=== PATIENT | female | born 1995 | race Two or more races ===

== ENCOUNTER 2024-10-23 09:44 | Outpatient (CLI) | payer BC, SELFPAY | END 2024-10-23 09:45 | disposition home or self-care (01) | LOC: NFLDREF 09:47 | PROVIDERS: Visit Provider Obstetrics & Gynecology | DX: Z34.92 Encounter for supervision of normal pregnancy, unspecified, second trimester (principal); Z3A.26 26 weeks gestation of pregnancy | CPT/HCPCS: 83020; 83021; 85660; 86787 ==

== ENCOUNTER 2024-10-23 11:42 | Outpatient (CLI) | payer BC, SELFPAY | END 2024-10-23 11:43 | disposition home or self-care (01) | LOC: US 11:42 | PROVIDERS: Visit Provider Obstetrics & Gynecology | DX: O36.8120 Decreased fetal movements, second trimester, not applicable or unspecified (principal); Z3A.27 27 weeks gestation of pregnancy | CPT/HCPCS: 76815 ==

== ENCOUNTER 2024-11-01 08:14 | Outpatient (CLI) | payer BC, SELFPAY | END 2024-11-01 08:15 | disposition home or self-care (01) | LOC: NFLDREF 11-05 01:16 | PROVIDERS: Visit Provider Obstetrics & Gynecology | DX: Z34.02 Encounter for supervision of normal first pregnancy, second trimester (principal) | CPT/HCPCS: 82951; 82952 ==

== ENCOUNTER 2024-12-20 11:57 | Outpatient (CLI) | payer MEDICAID, SELFPAY | END 2024-12-20 11:58 | disposition home or self-care (01) | LOC: NFLDREF 12-25 23:44 | PROVIDERS: Visit Provider Obstetrics & Gynecology | DX: D64.9 Anemia, unspecified (principal) | CPT/HCPCS: 82728 ==

== ENCOUNTER 2024-12-25 11:17 | Outpatient (CLI) | payer MEDICAID, SELFPAY ==
--- NOTE | 2024-12-25 11:30 | CRLHL7_ITS ---
For Patients: As a result of the Century Cures Act, medical imaging exams and procedure reports are released immediately into your electronic medical record. You may view this report before your referring provider. If you have questions, please contact your health care provider. OB ULTRASOUND PEMA by LMP: 01/23/2025. GA: 35 w, 6 d. INDICATION: Growth. TECHNIQUE: Real time norris scale imaging of the fetus was performed. Transabdominal imaging performed. CERVIX: Not visualized. POSITIONING: Vertex. 7 SDP (N: greater than 2 x 1 cm). PLACENTA: Technique: Transabdominal. PLACENTA POSITION: Posterior. DOPPLER: heart rate: 134 bpm. BIOMETRY: BPD: 8.7 cm. 35 w, 1 d, 37 percent. HC: 31.6 cm. 35 w, 3 d, 13 percent. AC: 32.2 cm. 36 w, 1 d, 68 percent. FL: 7 cm. 35 w, 6 d, 44 percent. FL/AC ratio: 21.67 percent. HC/AC ratio: .98. EFW: 2788 g. Weight: 6 lbs, 2 oz. age by this US: 35 w, 5 d. PEMA by this US: 01/24/2025. Percentile by PEMA: 51 percent. IMPRESSION: 1. Sonographic gestational age 35 weeks 5 days and sonographic due date 01/24/2025. Good correlation with dates. Normal interval growth. 2. Estimated weight 51st percentile. Abdominal circumference 68th percentile. Rafael Palomino M.D. Diagnostic Radiologist [email or web address] HUGH/Dictated by: Rafael Palomino MD @ 12/25/2024 8:12:00 PM (Electronically Signed)
== END 2024-12-25 11:18 | disposition home or self-care (01) ==
LOC: US 11:18
PROVIDERS: Visit Provider Obstetrics & Gynecology
DX: Z34.93 Encounter for supervision of normal pregnancy, unspecified, third trimester (principal); Z3A.35 35 weeks gestation of pregnancy
CPT/HCPCS: 76816; 87081; 87653

== ENCOUNTER 2024-12-25 13:41 | Outpatient (CLI) | payer MEDICAID, SELFPAY ==
[2024-12-26 15:10] LABS: Strep B DNA Probe POSITIVE (Negative)
[2024-12-26 16:52] LABS: Strep B Susceptibility Needed? No
== END 2024-12-25 13:42 | disposition home or self-care (01) ==
LOC: NFLDREF 13:41
PROVIDERS: Visit Provider Registered Nurse
DX: Z34.93 Encounter for supervision of normal pregnancy, unspecified, third trimester (principal); Z3A.35 35 weeks gestation of pregnancy
CPT/HCPCS: 87081; 87653

== ENCOUNTER 2025-01-08 11:32 | Inpatient (IN) | payer MEDICAID, SELFPAY ==
[2025-01-08] VITALS (70 sets, daily range): BP systolic 94–143; BP diastolic 50–79; PULSE 97–171; TEMP 36.5–37.1; O2SAT 80–100; BMI 31.8
--- NOTE | 2025-01-08 11:51 | W.PM.LDBA ---
Subjective History of Present Illness Date Seen: 01/08/25 Narrative: Patient is being admitted to Labor and Delivery for IOL after PROM. She is a 29 year old at 37 6/7 weeks gestation. Her full history and physical was dictated by Dr. GRIFFIN on 01/08/25. Please see this for details. Patient concerned about watery like vaginal discharge since last Tuesday, she was uncertain if this would be amniotic fluid and decided to wait to her clinic appointment today. AmniSure positive in clinic. Recommendation given for admission. Specific Issues/Plans Transfer at 26 6/7 weeks' gestation from [place] [id number] Partner: Jerald Latisha&Zenaida griffin 01/08/25 Latvian Speaking # GBS POSITIVE Ok with antibiotics in labor #GERD Change Pepcid to Omeprazole # Failed 1 hour gct (140) Passed all 3 hour gct values #Growth US ordered for 36 weeks due to persistent maternal concerns for size and delivery 12/25/2024: EFW 74% labs 06/02/2024: Blood type: A positive, antibody screen negative Hemoglobin: 12.4 Platelets: 263,000 Rubella: Immune Varicella: Not available RPR: Nonreactive Hep B sAg: Nonreactive Hep B sAb: Immune Hep C Ab: Nonreactive HIV: Negative HbA1c: 5.6 Urine culture: Negative GC/Chlamydia: Negative Genetic testing: Low risk, male AFP: negative Imaginst trimester: 06/02/2024: Single living intrauterine , crown to rump length consistent with at 5 weeks 6 days, PEMA: 01/27/2025 Anatomy scan: 09/10/2024: Vertex, normal amount of amniotic fluid, posterior placenta, not previa. Cervical length: 3.4 cm. Anatomic survey within normal limits. EFW: 371 g. FU 10/23/24: Growth ultrasound was completed today as well: Vertex, single deepest pocket of amniotic fluid 6.39 cm, posterior placenta, EFW: 74 percentile, abdominal circumference: 88 percentile. Normal growth. Vaccinations: COVID: [] Flu: Declined Tdap: 11/07/2024 32 week mental health: 11/19/24 34 wk hgb: Last pap: 2023 normal per patient OB - Problem Based A/P Additional Plan (1) PROM (premature rupture of membranes): Status: Acute Plan 1. IOL after PROM suspected since 01/04/25. Recommend to start IV Oxytocin as cervix is favorable. 2. GBS positive, start antibiotics per protocol RANI- no maternal allergies. 3. Candidate for pain management as desired. OB Exam Detailed Labor and Delivery Exam Patient Gravid: Yes Dilation (cm): 1 Effacement (%): 90 Cervix position: mid Consistency: soft Fetus (Single) Station: -1 Amniotic Membrane Status: SROM Amniotic Membrane Fluid Description: Clear Heart Rate Baseline: 140 Monitor Accelerations: Present Monitor Decelerations: None Community Relations Advisor Variability: Moderate (6-25)
[2025-01-08 12:04] LABS: Basophils Percent Auto 0.5 % (0.0-3.0); Eosinophils Percent Auto 3.2 % (0.0-7.0); Hematocrit 30.8 % (33.0-51.0); Hemoglobin* 10.1 gm/dL (12.0-16.0); Immature Granulocytes Pct Auto 1.2 %; Lymphocytes Percent Auto 13.1 % (20-44); Mean Corpuscular HGB Conc 33 gm/dL (32-36); Mean Corpuscular Hemoglobin 27 pg (26-34); Mean Corpuscular Volume 84 fL (80-100); Monocytes Percent Auto 7.5 % (0.0-11.0); Neutrophils Percent Auto 74.5 % (42.0-72.0); Platelet Count* 208 K/uL (140-440); RDW Coefficient of Variation % 13.8 % (11.5-15.5); Red Blood Count 3.69 m/uL (4.00-5.20); White Blood Count* 12.28 K/uL (4.50-11.00)
[2025-01-08 12:10] LABS: Slide Review Reflex No
[2025-01-08] MEDS: LACTATED RINGERS 1000 ML 1,000 ML 125 ML IV (12:13)
[2025-01-08] MEDS: AMPICILLIN 2 GM in 0.9 % SODIUM CHLORIDE Mini-bag 100 ML IVPB (12:13)
[2025-01-08] MEDS: OXYTOCIN 30 unit/500 ML in NS 30 UNIT/500 ML BAG IVPB (12:18)
[2025-01-08] MEDS: AMPICILLIN 1 GM in 0.9 % SODIUM CHLORIDE Mini-bag 100 ML IVPB ×2 (16:11→20:16)
--- NOTE | 2025-01-08 19:20 | PM.OBPNL ---
Subjective Time Seen by Provider: 16:30 Date Seen: 01/08/25 Narrative: Okay Objective Vital Signs: Last Vital Signs Temp 97.7 F 01/08/25 18:49 Pulse 107 H 01/08/25 18:49 BP 112/68 01/08/25 18:49 Pulse Ox 98 01/08/25 16:09 Pelvic Exam Dilation (cm): 3 Effacement (%): 90 Station: 0 Contractions Monitor mode: External Contraction pattern: Regular Contraction intensity: Mild Pitocin Rate (mU/min): 8 Assessment Assessment: induction ongoing Station: 0 Amniotic Membrane Status: SROM Status: Category l Heart Rate Baseline: 140 Retirement Variability: Moderate (6-25) Monitor Accelerations: Present Monitor Decelerations: None Plan Plan: So far has received 2 doses of ampicillin antibiotic. Forebag noted and recommendation given to open, additional clear fluid noted and tolerated it well. Will continue Oxytocin titration, progressing well.
[2025-01-08] MEDS: ONDANSETRON 2 MG/ML inj 4 MG IV (19:50)
[2025-01-08] MEDS: LACTATED RINGERS 1000 ML 1,000 ML IV (20:21)
[2025-01-08] MEDS: LIDOCAINE 2% (PF) 5 ML VIAL EPIDURAL (20:41)
[2025-01-08] MEDS: ROPIVACAINE 0.2% 100 ml 100 ML 10 MG EPIDURAL (20:44)
--- NOTE | 2025-01-08 20:56 | PM.ANBPRC ---
[facility] Medical History Migraines ?G43.909 - Migraine, unspecified, not intractable, without status migrainosus (ICD-10) Social History Narrative: No cats at home, no personal or family history of preeclampsia, no history of sexual assault or abuse. Patient is , no current or pre smoking, no current or pre alcohol use. Patient works in [employer]. Patient accepts blood transfusions. Denies any yarsani or cultural needs. No chemical or radiation exposure. What is your current living situation?: I presently have a place to live Problems where you live: no known problems In the past 12 months, utilities in danger of being shut off: no In past 12 months, lack of transportation kept you from medical appts, meetings, work, or getting things needed for daily living: no In the past 12 mos, have been you worried that your food would run out before you had money to buy more?: never true In the past 12 mos, the food you bought just didn't last and you didn't have money to buy more?: never true Smoking Status: Never smoker How often does anyone, including family, friends and others, physically hurt you: never How often does anyone, including family, friends and others, insult or talk down to you: never How often does anyone, including family, friends and others, threaten you with harm: never How often does anyone, including family, friends and others, scream or curse at you: never Meds Home Medications and Allergies Home Medications ?Medication ?Instructions ?Recorded ?Confirmed ?Type docosahexaenoic acid 200 mg mg PO 10/23/24 01/08/25 History capsule ( DHA) esomeprazole magnesium 20 mg 20 mg PO QDAY 12/20/24 01/08/25 History capsule,delayed release (Nexium) Allergies Allergy/AdvReac Type Severity Reaction Status Date / Time No Known Drug Allergies Allergy Verified 01/08/25 10:52 Results Labs Labs: Laboratory Results - last 24 hr 01/08/25 11:50 WBC 12.28 H RBC 3.69 L Hgb 10.1 L Hct 30.8 L MCV 84 MCH 27 MCHC 33 RDW Coeff of Shiv 13.8 Plt Count 208 Neut % (Auto) 74.5 H Lymph % (Auto) 13.1 L Rutherford % (Auto) 7.5 Eos % (Auto) 3.2 Baso % (Auto) 0.5 Neut # (Auto) 9.10 H Lymph # (Auto) 1.60 [place]utherford # (Auto) 0.90 Eos # (Auto) 0.40 Baso # (Auto) 0.10 Abs Immat Gran (auto) 0.10 Imm/Tot Granulo (auto) 1.2 Blood Type A Positive Antibody Screen NEGATIVE Vital Signs Vital Signs: Last Vital Signs Temp 98.4 F 01/08/25 19:20 Pulse 111 H 01/08/25 20:54 BP 107/56 L 01/08/25 20:54 Pulse Ox 100 01/08/25 20:52 Weight: 79.061 kg Height: 157.48 cm Anesthesia Procedures Epidural Insertion Patient Location: OB Start Time: 20:35 Stop Time: 21:00 Start Date: 01/08/25 Stop Date: 01/08/25 Reason for Block: primary anesthetic Patient Position: sitting Performed By: Cristian Duffy Preanesthetic Checklist: IV checked, risks and benefits discussed, surgical consent, monitors and equipment checked, pre-op evaluation, timeout performed and anesthesia consent Prep: chlorhexidine gluconate Monitoring: blood pressure monitoring, air sampling and monitoring, continuous pulse oximetry and heart rate Approach: midline Vertebral Space: lumbar (1-5) Needle Type: Tuohy needle Injection Technique: continuous catheter (catheter) Needle gauge: 17 Needle Length (cm): 10 cm Needle Insertion Depth (cm): 5 Catheter Gauge: 19 Catheter Type: multi-orifice Catheter at skin depth (cm): 10 Test Dose Result: negative and lidocaine 1.5% with epinephrine 1 to 200,000
[2025-01-09] VITALS (175 sets, daily range): BP systolic 95–146; BP diastolic 47–82; PULSE 92–134; RESP 16–18; TEMP 36.7–38.3; O2SAT 88–100
[2025-01-09] MEDS: AMPICILLIN 1 GM in 0.9 % SODIUM CHLORIDE Mini-bag 100 ML IVPB ×4 (00:28→12:30)
[2025-01-09] MEDS: LACTATED RINGERS 1000 ML 1,000 ML 125 ML IV (02:22)
[2025-01-09] MEDS: LIDOCAINE 2% (PF) 5 ML VIAL EPIDURAL (03:05)
[2025-01-09] MEDS: ROPIVACAINE 0.2% 100 ml 100 ML 12 MG EPIDURAL (05:08)
--- NOTE | 2025-01-09 07:25 | PM.OBPNL ---
Subjective Time Seen by Provider: 07:28 Date Seen: 01/09/25 Narrative: Shannen is a 29yo admitted at 38w0d GA for PROM. She presented to clinic yesterday, where she noted leaking intermittently that looked clear vs discharge like since 01/04. Amnisure was found to be positive. IOL was started with IV pitocin. Patient has made slow progress through labor. She was deemed to be in active labor at about 0230, with a cervical exam of 6 cm. Next exam by nurse is at about 430 was 7.5cm. In the next few hours, she reported intermittent rectal pressure and persistent abdominal pain. Epidural is in place, which was modified by Anesthesia an attempt to improve pain control. Maternal tachycardia has been present throughout her labor course, but beginning around 0630 tachycardia was noted. Moderate variability with accelerations persisted, no decelerations. When I came on to shift at 0700, requested a cervical exam and patient was also requesting one due to pressure. I presented to the bedside, where patient notes she is very uncomfortable despite epidural. She notes that she does not feel feverish or ill, but she does feel more plasterer maintenance the last few hours. Bedside nurse has noted that her body temp palpates to be increasing, last oral temp was 99.3 and axillary was 100.3 degrees F. Objective Exam: General: Alert and oriented. In distress secondary to pain. Psych: Appropriate mood and affect Abdomen: Gravid. NST: Baseline is about 155 beats per minute, moderate variability, accelerations seen, no decelerations. Previous segment of tracing was notable for a baseline of 160 beats per minute, brief periods of minimal variability noted. [place]: [place] about every 3 minutes. Cervix: Unchanged at 7.5cm/90%/0 Vital Signs: Last Vital Signs Temp 98.7 F 01/09/25 06:06 Pulse 114 H 01/09/25 06:58 BP 119/68 01/09/25 06:58 Pulse Ox 100 01/09/25 07:24 Pelvic Exam Dilation (cm): 3 Effacement (%): 90 Station: 0 Contractions Monitor mode: External Contraction pattern: Regular Contraction intensity: Mild Pitocin Rate (mU/min): 8 Assessment Station: 0 Amniotic Membrane Status: SROM Status: Category l Heart Rate Baseline: 140 Monitor Accelerations: Present Monitor Decelerations: None Plan Plan: Shannen is a 29yo at 38w0d GA admitted for IOL in the setting of PROM. She notes intermittent leaking since 01/04, where she had a positive amnisure in clinic on 01/08. IOL was commenced with IV pitocin, where she made gradual change. Entered active phase at 0230 by cervical exam of 6cm dilation. She was noted to make interval change to 7.5cm at 0430, but on my exam this morning she was diagnosed with labor dystocia in the active phase as she remains unchanged at 7.5cm dilation. In addition, patient has had persistent maternal tachycardia through her labor course and new development of tachycardia at 0630. Last maternal temp orally was 99.3, axillary by bedside RN was reportedly 100.3. status is improved to category 1 with baseline of 155bpm, predominantly moderate variability and accelerations present with no decelerations. Close interval tracing was notable again for tachycardia and periods of minimal variability. Shannen is having a very hard time with pain control despite anesthesia attempting to optimize her epidural. In total, I am concerned with her labor progress in the active phase, persistent maternal tachycardia and new development of intermittent tachycardia. At time of conversation, FHR was category 1 where we discussed either cautiously continuing her induction with pitocin titration vs proceeding to C/S. Explained so long as she remains afebrile with reassuring status, we could continue for another hour as she has not technically met criteria for arrest of dilation in the active phase but she does seem to be developing chorioamnionitis. Patient notes feeling like she can't do it and requests at this time. I agree this is very reasonable given her labor dystocia, likely developing chorioamnionitis and difficulty with pain control. Pitocin was discontinued. ball truing machine operator was requested and presented to the bedside. We reviewed the risks, benefits and alternatives to in detail. Discussed increased risk of bleeding and infection in her case, where she has no asthma, hypertension or history of VTE. She is a candidate for any uterotonic necessary, discussed potential surgical interventions with PPH as well. She does consent to blood transfusion if required. Active T/S on file. Plan perioperative ancef and azithromycin. Blood type B positive. Pediatrics to attend delivery in the setting of an scheduled . Initial conversation was held with Concepcion and her (who declined iPad screen machine operator as he speaks Italian well and could translate) but all of the specific medical decision making and consent for surgery was obtained within in-person ball truing machine operator (Chary).
[2025-01-09] MEDS: AZITHROMYCIN 500 MG in 0.9 % SODIUM CHLORIDE 250 ml 250 ML 255 MG IVPB (07:41)
[2025-01-09] MEDS: CEFAZOLIN 1 GM inj 2 GM IVP (08:00)
[2025-01-09] MEDS: TRANEXAMIC ACID 100 MG/ML INJ 1000 MG IV (08:19)
--- NOTE | 2025-01-09 09:27 | P.ANES_ITS ---
Anesthesia Charges Start Date/Time Anesthesia Start Date: 01/09/25 Anesthesia Start Time: 07:49 Stop Date/Time Anesthesia Stop Date: 01/09/25 Anesthesia Stop Time: 09:13 Summary Emergency: SPRING FLOOR SERVICE WORKER Coding CPT Codes CPT Codes: ANES/ANALG CS DELIVER ADD-ON - 25293 ([id number]) P2 - PATIENT W/MILD SYST DISEASE, QK - CONSULTING SOFTWARE ENGINEER 2-4 CNCRNT ANES PROC, QX - SPRING FLOOR SERVICE WORKER SVC W/ MD MED DIRECTION Additional Codes: Summary - Emergency: SPRING FLOOR SERVICE WORKER ([id number])
--- NOTE | 2025-01-09 09:27 | W.ANESCHARGE ---
Anesthesia Charges Start Date/Time Anesthesia Start Date: 01/09/25 Anesthesia Start Time: 07:49 Stop Date/Time Anesthesia Stop Date: 01/09/25 Anesthesia Stop Time: 09:13 Summary Emergency: PIN STICKER Coding CPT Codes CPT Codes: ANES/ANALG CS DELIVER ADD-ON - 66116 ([id number]) P2 - PATIENT W/MILD SYST DISEASE, QK - DIVERSIONAL THERAPIST'S ASSISTANT 2-4 CNCRNT ANES PROC, QX - PIN STICKER SVC W/ MD MED DIRECTION Additional Codes: Summary - Emergency: PIN STICKER ([id number])
--- NOTE | 2025-01-09 09:28 | W.PM.NB ---
Nerve Block Nerve Block Time Seen by Provider: 09:05 Date Seen: 01/09/25 Type of block requested by surgeon for post-operative analgesia: TAP Side: bilateral Time out performed: Yes Verification of patient name: Yes Verification of date of : Yes Site marking: site marked Name of person performing procedure: Ivania Saini Continuous monitoring Was continuous monitoring of O2 sat, B/P, cardiac exercise specialist, recorded every 15 minutes?: Yes Procedure Checklist: sterile prep, needles and gloves Ultrasound guided. Images saved: Yes Medications given in 5ml increments after negative aspiration: Marcaine %: 0.25 mL: 20 Needle gauge: 20 and Exparel mL: 10 Needle gauge: 20 Patient tolerated procedure well: Yes Block Charges Block Charge (with Pro Fee): TAP Bilateral Use of Ultrasound Machine for Block: Yes- US Guidance/pain block
--- NOTE | 2025-01-09 09:30 | P.ANES_ITS ---
Anesthesia Charges Start Date/Time Anesthesia Start Date: 01/09/25 Anesthesia Start Time: 07:49 Stop Date/Time Anesthesia Stop Date: 01/09/25 Anesthesia Stop Time: 09:13 Summary Emergency: ZITA Coding CPT Codes CPT Codes: ANES/ANALG CS DELIVER ADD-ON - 21816 ([id number]) QK - FRONTEND ENGINEER 2-4 CNCRNT ANES PROC, QX - ASSURANCE SPECIALIST SVC W/ MD MED DIRECTION, P2 - PATIENT W/MILD SYST DISEASE Additional Codes: Summary - Emergency: ZITA ([id number])
--- NOTE | 2025-01-09 09:30 | W.ANESCHARGE ---
Anesthesia Charges Start Date/Time Anesthesia Start Date: 01/09/25 Anesthesia Start Time: 07:49 Stop Date/Time Anesthesia Stop Date: 01/09/25 Anesthesia Stop Time: 09:13 Summary Emergency: ZITA Coding CPT Codes CPT Codes: ANES/ANALG CS DELIVER ADD-ON - 74679 ([id number]) QK - POT FILLER 2-4 CNCRNT ANES PROC, QX - INSTRUCTOR PAINTING SVC W/ MD MED DIRECTION, P2 - PATIENT W/MILD SYST DISEASE Additional Codes: Summary - Emergency: ZITA ([id number])
--- NOTE | 2025-01-09 10:18 | P.OBPRC_ITS ---
Procedure Time Seen by Provider: 08:45 Date of procedure: 01/09/25 Pre-op diagnosis: Intraamniotic infection, prolonged rupture of membranes, labor dystocia in the active phase, GBS positivity Post-op diagnosis: same ( hemorrhage) Procedure Done: Global Will [facility] bill your pro fee for this procedure?: Yes Blood Loss Measurement Type: QBL (3043) Bakri Used: No IV fluids (mL): 1,500 Urine Output (mL): 400 Urine Output Comment: Clear, yellow Surgeon: Carol Ann Cheek MD Anesthesia Type: Epidural Findings: Liveborn male fetus Normal uterus, bilateral fallopian tubes and ovaries Scattered subcentimeter cystic lesions with stuck on appearance on the posterior lower uterus. Friable, with associated small volume bleeding. Procedure Name: Primary Delivery Posterior uterine lesion biopsy Procedure Description: Patient was taken to the operating room with IV running. She received cefazolin and azithromycin in preoperative prophylaxis. She had previously received an epidural for labor analgesia, bolused by DIRECTOR SYSTEMS. Matthew catheter was previously inserted. She was prepped and draped in the usual sterile fashion. Anesthesia was tested and found to be adequate. A low-transverse skin incision was made with a scalpel and carried through to the underlying layer of fascia with the scalpel. The subcutaneous fat was dissected off the underlying fascia with Bovie and blunt dissection. The fascia was nicked in the midline with a scalpel, and this incision was extended l aterally with scissors. The rectus muscles were in the midline. Peritoneum was identified and entered bluntly. Bovie was used to widen this opening laterally. Miguel O retractor was inserted and tightened down, providing excellent visualization of the lower uterine segment. The bladder reflection was advanced along the lower uterine segment. A bladder flap was created with a combination of sharp and blunt dissection. Low-transverse uterine incision was made with a scalpel. Incision was widened bluntly. The infant's head was grasped through the hysterotomy in OA position and elevated to the hysterotomy. The remainder of the body delivered without incident with the help of fundal pressure. No nuchal cord was noted. Cord was clamped and cut after 30 seconds. was handed off to attending nurses. The placenta was delivered with gentle traction on the cord. The uterus was cleaned of all clots and debris with the dry lap pad. Poor uterine tone was noted, where rapid infusion of IV Pitocin was requested hysterotomy repair was started. The hysterotomy was reapproximated with 0 Vicryl in a running, locked fashion. Ongoing atony was noted, where IM Methergine and IV TXA were requested and administered. Second layer of the same suture was used in imbricating fashion to obtain hemostasis. Bimanual massage was performed. Excellent improvement in uterine tone was noted. The adnexa were examined and noted to be normal in appearance. The cul-de-sac and gutters were cleansed with dampened laparotomy sponge, removing any further clots and debris. The posterior surface of the uterus was inspected, where scattered subcentimeter lesions were noted. These were clear in cystic like with a stuck on appearance to the posterior lower uterus. Lesions were noted to be spontaneously oozing, very friable to any manipulation. A characteristic lesion was gently grasped, elevated and excised from the posterior uterus with electrocautery to be sent for pathologic evaluation. Hemostasis was achieved with a [id number] suture o 2-0 vicryl at this site. A second area was noted to be bleeding and did not respond to electrocautery, where a depsos-ca-rhmhl suture was applied there as well. Scattered electrocautery was utilized as needed. Excellent hemostasis was noted, the uterus was reintroduced to the peritoneal cavity. The hysterotomy was examined and noted to be hemostatic. Bladder flap was serially grasped, elevated and noted to be hemostatic. The Miguel O retractor was removed. The hysterotomy was reexamined and found to be hemostatic. The rectus muscles were examined and made hemostatic with electrocautery as needed. The fascia was reapproximated with 0 Vicryl in a running fashion. Subcutaneous fat was irrigated and Bovie used on oozing vessels. The subcutaneous fat did not require closure. The skin was closed with a subcuticular stitch of 3-0 monocryl. Surgical glue was applied above this. details: - Liveborn male fetus - weight: 3430g - APGARs were 8 and 10 at 1 and 5 minutes respectively - Cord gas and cord blood were not sent Surgical debrief was completed with details as above. Case was complicated by a hemorrhage secondary to uterine atony, treated with 40 units of dilute oxytocin IV, 1 g IV TXA and 0.2mg IM methergine. Initial QBL was 1034cc, however at completion of case another 90cc clot was expressed from the uterus making total QBL 1133cc. I returned to the operating room in order to reassess bleeding - where excellent uterine tone was noted, fundus at umbilicus. The labia were gently parted, where no further expression of blood/clots could be appreciated with fundal pressure. Gentle vaginal exam performed, no apparent residual clots or lower uterine segment atony. Patient tolerated procedure well was taken to recovery area in stable condition. Complications: hemorrhage secondary to uterine atony Pathology: specimen obtained, sent to pathology Surgery Debrief Performed: Yes Condition: stable Disposition: floor Infant total score - 1 minute: 8 total score - 5 minute: 10
[2025-01-09] MEDS: LACTATED RINGERS 1000 ML 1,000 ML 100 ML IV ×2 (11:40→12:25)
[2025-01-09] MEDS: CLINDAMYCIN 900 MG/50 ML-D5W 900 MG/50 ML PIGGYBACK 100 MG IVPB ×2 (13:18→21:03)
[2025-01-09] MEDS: KETOROLAC 30 MG/ML inj IVP ×2 (15:21→21:03)
[2025-01-09 18:14] LABS: Rapid Plasma Reagin (RPR) Non Reactive (Non Reactive)
[2025-01-09] MEDS: AMPICILLIN 2 GM in 0.9 % SODIUM CHLORIDE Mini-bag 100 ML IVPB ×2 (18:22→23:59)
[2025-01-10] VITALS (23 sets, daily range): BP systolic 89–108; BP diastolic 54–68; PULSE 86–97; RESP 16–18; TEMP 36.3–36.9; O2SAT 92–99
[2025-01-10] MEDS: KETOROLAC 30 MG/ML inj IVP ×3 (03:25→15:32)
[2025-01-10] MEDS: CLINDAMYCIN 900 MG/50 ML-D5W 900 MG/50 ML PIGGYBACK 100 MG IVPB (05:10)
[2025-01-10] MEDS: AMPICILLIN 2 GM in 0.9 % SODIUM CHLORIDE Mini-bag 100 ML IVPB ×2 (06:33→12:17)
[2025-01-10 06:35] LABS: Hemoglobin* 7.3 gm/dL (12.0-16.0)
--- NOTE | 2025-01-10 08:38 | PM.OBPNVD1 ---
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 Her labor was complicated by chorioamnionitis and arrest of dilation. She underwent a delivery yesterday morning at approximately 8:15 a.m.. Her blood loss was 1.1 L and her hemoglobin this morning was 7.3. Reports fatigue and mild dizziness when she is out of bed. Consent for transfusion of packed red blood cells was reviewed and signed with the asphalt paver. All the patient's questions were answered. Planning on giving her 1 unit of packed red blood cells and then I will reassess how she is feeling at approximately noon today if she is not feeling significantly better I will give her a 2nd unit. She otherwise states her pain is well controlled. She denies nausea/vomiting. She is tolerating a regular diet. She has not had flatus. Her Matthew catheter was removed this morning at approximately 5:15 am. She has not urinated yet. She is bottle feeding her baby. OB - PN: Obj Exam Physical Exam: Vital signs: Temp Pulse Resp BP Pulse Ox O2 Del Method 98 F 95 16 91/56 L 98 Room Air 01/10/25 05:06 01/10/25 05:06 01/10/25 06:27 01/10/25 06:00 01/10/25 05:06 01/10/25 05:06 Narrative: General: Pleasant, woman in no acute distress. Vital signs: Included in her medical record. Heart: Regular rate and rhythm without gallop, rub or murmur. Chest: Clear to auscultation bilaterally. Abdomen: Mildly distended with mild tenderness to palpation throughout. No rebound or guarding. Normal bowel sounds throughout. No CVA or flank tenderness. Incision: Dressing removed. Incision is clean, dry and intact. Extremities: No pain or edema. OB - PN: Obj Data Labs Labs: Laboratory Results - last 24 hr 01/08/25 01/10/25 11:50 06:13 Hgb 7.3 L* RPR Screen Non Reactive OB - PN: A/P Delivery Assessment and Plan (1) Status post primary low transverse section: Status: Acute Assessment and Plan: 1. Due to symptomatic anemia plan on transfusing 1 unit packed red blood cells. I will see her approximately noon and reassess how she is feeling. If she is not feeling significantly better I will recommend giving her a 2nd unit. 2. Check hemoglobin tomorrow morning. 3. Start oral iron supplementation every other day. 4. Continue postoperative care.
[2025-01-10] MEDS: DOCUSATE SODIUM 100 MG CAPSULE PO (09:07)
--- NOTE | 2025-01-10 09:27 | PM.ANPOST ---
Post Anesthesia Note Post Anesthesia Note Patient seen: Inpatient Respiratory Status: adequate Cardiovascular Status: adequate Mental Status: baseline Pain: adequate Temp: baseline Anesthetic awareness: N/A Complications: none Follow care: none
[2025-01-10] MEDS: FERROUS SULFATE 325 MG TABLET PO (12:04)
[2025-01-10] MEDS: ACETAMINOPHEN 500 MG TABLET 1000 MG PO ×2 (17:10→23:30)
[2025-01-10 17:11] LABS: Hemoglobin* 8.8 gm/dL (12.0-16.0)
[2025-01-10] MEDS: OXYCODONE 5 MG TABLET PO ×2 (19:59→23:30)
[2025-01-10] MEDS: IBUPROFEN 600 MG TABLET PO (19:59)
[2025-01-11 00:10] VITALS: BP 108/74; PULSE 83; RESP 16; TEMP 36.7; O2SAT 94
[2025-01-11] MEDS: IBUPROFEN 600 MG TABLET PO (03:00)
[2025-01-11] MEDS: OXYCODONE 5 MG TABLET PO (03:47)
[2025-01-11 04:00] VITALS: BP 106/72; PULSE 83; RESP 18; TEMP 36.4; O2SAT 99
[2025-01-11 04:54] LABS: Hemoglobin* 8.4 gm/dL (12.0-16.0)
--- NOTE | 2025-01-11 08:13 | P.DS_ITS ---
DS: Providers Provider Date Seen: 01/11/25 Date of admission: 01/08/25 11:32 Primary care physician: Not a Local Provider Admitting Clinician: Yamilet Powell MD Consults: 01/08/25 12:09 Consult to Podiatry Assistant [CONS] Routine Comment: Reason for Consult:: Eligibility And Occupancy Interviewer Needed Attending Physician on discharge: Melvi Gotti CNM Date of Discharge: 01/11/25 DS: Diagnosis Discharge Diagnosis (1) Status post primary low transverse section: Status: Acute (2) Anemia due to acute blood loss: Status: Acute (3) Transfusion of blood during current hospitalisation: Status: Acute (4) Lactating mother: Status: Acute Exam Narrative: Exam Narrative: GENERAL APPEARANCE:? normal affect, alert, no distress MOOD:? appropriate CHEST:? clear to auscultation HEART:? regular rate and rhythm ABDOMEN:? soft, non-tender the uterine fundus is At Umbilicus, Midline and is appropriate for the stage of recovery. EXTREMITIES:? normal and trace edema INCISION: Healing well, no surrounding erythema, abnormal induration or discharge Const: Vital Signs, click to edit/add: Vital Signs - 24 hr 01/10/25 09:54 01/10/25 10:09 01/10/25 10:39 Temperature 98.1 F 98.1 F 98.2 F Pulse Rate 90 92 92 Pulse Rate [Pulse Oximeter] Respiratory Rate 16 16 16 Blood Pressure 89/55 L 89/54 L 94/62 Blood Pressure [Ri ght Arm] Pulse Oximetry 97 92 92 Oxygen Delivery Me thod Room Air Room Air Room Air 01/10/25 11:09 01/10/25 11:39 01/10/25 13:10 Temperature 98.1 F 98.4 F 98.1 F Pulse Rate 92 92 Pulse Rate [Pulse Oximeter] 94 Respiratory Rate 16 16 16 Blood Pressure 90/54 L 95/58 L Blood Pressure [Ri ght Arm] 93/56 L Pulse Oximetry 92 99 99 Oxygen Delivery Me thod Room Air Room Air Room Air 01/10/25 13:11 01/10/25 13:15 01/10/25 13:17 Temperature Pulse Rate Pulse Rate [Pulse Oximeter] 96 97 97 Respiratory Rate Blood Pressure Blood Pressure [Ri ght Arm] 98/60 96/59 L 100/66 Pulse Oximetry Oxygen Delivery Me thod 01/10/25 16:00 01/10/25 20:00 01/11/25 00:10 Temperature 98.0 F 97.4 F L 98.0 F Pulse Rate Pulse Rate [Pulse Oximeter] 97 86 83 Respiratory Rate 16 18 16 Blood Pressure Blood Pressure [Ri ght Arm] 100/62 108/68 108/74 Pulse Oximetry 99 98 94 Oxygen Delivery Me thod Room Air Room Air Room Air 01/11/25 04:00 Temperature 97.5 F L Pulse Rate Pulse Rate [Pulse Oximeter] 83 Respiratory Rate 18 Blood Pressure Blood Pressure [Ri ght Arm] 106/72 Pulse Oximetry 99 Oxygen Delivery Me thod Room Air Documenting provider has reviewed patient's vital signs: yes OB - DS: Summary Hospital Course Hospital Course: Shannen is a 29 y.o. G 1 P 1 who was admitted to [facility] for spontaneous onset of labor. ?She had a section that was uncomplicated. The patient feels well. ?The pain is well controlled with current medications. ?She has no new complaints. ?She is breast feeding and reports things are going well. the patient has done well.? Vitals have been stable.? She has remained afebrile.? Has a good appetite, is tolerating a general diet. ?She is voiding without difficulty.? She is passing gas and has not had a bowel movement.? She is ambulating and denies any dizziness.? Has small amount of rubra lochia. Problems: denies Peripartum Data Infant delivery method: Primary C/S; Labored Procedures: Procedures Operation Date: 01/09/25 06:30 Actual Procedure Side Surgeon p PRIMARY Section Marjorie Cheek MD complications: none Infant Gender: Male Discharge Plan: Home Status at Discharge Functional status at discharge: independent ambulation Overall status at discharge: patient is progressing back to baseline Time Spent with Patient Time attestation: Total time spent providing and/or coordinating discharge services: Time spent: Less than 30 minutes Discharge Plan Discharge Disposition: Home, Self-Care Date of Admission: 01/08/25 11:32 Attending Provider on Discharge: Melvi Gotti Primary Care Provider: Provider,Not a Local Condition: Stable Anticipated Discharge Date/Time: 01/11/25 12:00 Discharge Medications: New docusate sodium 100 mg Capsule 100 mg PO DAILY Qty: 90 0RF ibuprofen 600 mg Tablet 600 mg PO Q6H PRN (Reason: Pain) Qty: 60 0RF oxycodone 5 mg Tablet 5 - 10 mg PO Q4H PRN (Reason: Pain) Qty: 15 0RF ferrous sulfate 325 mg (65 mg iron) tablet,delayed release (DR/EC) 325 mg PO Q OTHER DAY PRN (Reason: Fatigue) Qty: 60 0RF acetaminophen 500 mg Tablet 1,000 mg PO Q6H PRN (Reason: pain/fever) Qty: 0 0RF Continued DHA 200 mg capsule PO esomeprazole magnesium [Nexium] 20 mg capsule,delayed release(DR/EC) 20 mg PO QDAY Discharge Orders: Discharge Order (Routine); Ordered 01/11/25 Ordered By: Melvi Gotti Patient Education: OB Over the Counter Medication Information, O B Vaginal/Breast Feeding Additional Instructions: Discharge instructions were reviewed with the patient including signs and symptoms of infection and home going medications Lifting Restrictions: 20 pounds for 6 weeks No not submerge incision under water X 2 weeks? Nothing vaginally for 6 weeks: no tampons or intercourse Do not drive while taking narcotic pain medication(s) Off Work or School for 6 weeks 2-week visit: incision check, discuss feeding concerns, review control options and screen for anxiety/depression. 6-week visit for an annual exam. consultation services are available to all mothers and babies for the first year after delivery.? To make an appointment, please call [phone]. Activity Level: Activity as Tolerated Discharge Diet: Regular Follow Up Appointments: [facility] [Provider Group] Forms: MyHealth Info Instructions
[2025-01-11 08:38] VITALS: BP 97/63; PULSE 67; RESP 16; TEMP 36.8; O2SAT 97
[2025-01-11] MEDS: ACETAMINOPHEN 500 MG TABLET 1000 MG PO (09:33)
[2025-01-11] MEDS: DOCUSATE SODIUM 100 MG CAPSULE PO (09:33)
[2025-01-11 09:35] VITALS: BP 102/67; PULSE 95; RESP 16; TEMP 36.4; O2SAT 98
[2025-01-11] MEDS: IRON SUCROSE COMPLEX 200 MG in 0.9 % SODIUM CHLORIDE 100 ml 100 ML 440 MG IVPB (09:59)
[2025-01-11 10:21] VITALS: BP 99/63; PULSE 98; RESP 16; O2SAT 98
== END 2025-01-11 12:34 | disposition home or self-care (01) | DRG 540 ==
PROVIDERS: Obstetrics & Gynecology; Admitting Provider Obstetrics & Gynecology; Visit Provider Obstetrics & Gynecology
PROC: 10D00Z1 Extraction of Products of Conception, Low, Open Approach (ICD-10-PCS; CPT 59514; principal; 2025-01-09 06:30)
DX: O42.02 Full-term premature rupture of membranes, onset of labor within 24 hours of rupture (principal); O99.824 Streptococcus B carrier state complicating childbirth; G89.18 Other acute postprocedural pain; O99.892 Other specified diseases and conditions complicating childbirth; R00.0 Tachycardia, unspecified; O76 Abnormality in fetal heart rate and rhythm complicating labor and delivery; O66.9 Obstructed labor, unspecified; O41.1230 Chorioamnionitis, third trimester, not applicable or unspecified; O72.1 Other immediate postpartum hemorrhage; R42 Dizziness and giddiness; R53.83 Other fatigue; O90.81 Anemia of the puerperium; D62 Acute posthemorrhagic anemia; N85.9 Noninflammatory disorder of uterus, unspecified; Z3A.37 37 weeks gestation of pregnancy; Z37.0 Single live birth
CPT/HCPCS: 01967; 01968; 36415; 36430; 64488; 76942; 85018; 85025; 86592; 86850; 86900; 86901; 86922; 88305; 88307; 99140; T1013; A4314; A9270; J0290; J0456; J0665; J0666; J0690; J0736; J1100; J1580; J1756; J1885; J2274; J2371; J2405; J2590; J2765; J2795; J3010; J7050; J7120; P9016

== ENCOUNTER 2025-02-19 08:26 | Outpatient (CLI) | payer MEDICAID, SELFPAY ==
[2025-02-20 18:05] LABS: HPV Source Cervix
== END 2025-02-19 08:27 | disposition home or self-care (01) ==
PROVIDERS: Visit Provider Physician Assistant
DX: Z30.430 Encounter for insertion of intrauterine contraceptive device (principal)
CPT/HCPCS: 87624; 87625; 88141; 88142

== ENCOUNTER 2025-06-18 07:46 | Day surgery (SDC) | payer BC, SELFPAY ==
[2025-06-18] VITALS (11 sets, daily range): BP systolic 95–122; BP diastolic 52–81; PULSE 64–110; RESP 14–16; TEMP 36.2–37; O2SAT 96–98; BMI 28.1
[2025-06-18 08:06] LABS: Ur HCG Qualitative* Negative (Negative)
[2025-06-18] MEDS: SODIUM CHLORIDE 0.9 % (FLUSH) 10 ML SYRINGE IVF (08:23)
[2025-06-18] MEDS: LACTATED RINGERS 1000 ML 1,000 ML 100 ML IV (08:23)
[2025-06-18 08:34] LABS: Hemoglobin* 12.2 gm/dL (12.0-16.0)
--- NOTE | 2025-06-18 08:45 | W.PM.H&PU ---
History & Physical Update History & Physical Update H&P Reviewed and patient assessed: No changes noted
[2025-06-18] MEDS: BUPIVACAINE 0.5% 30 ML INJECTION (10:00)
--- NOTE | 2025-06-18 10:03 | SUR.OPER ---
IUD removed at 0953
--- NOTE | 2025-06-18 10:22 | W.PM.GYNPROC ---
Procedure Note Date of procedure: 06/18/25 Will [facility] bill your pro fee for this procedure?: Yes Pre-op diagnosis: Family planning Post-op diagnosis: Family planning Procedure: Laparoscopic bilateral salpingectomy, Mirena IUD removal Anesthesia: GETA Complications: None Surgeon: Grant Powell MD Estimated blood loss (mL): 5 IV fluids (mL): 600 Urine Output (mL): 200 Pathology: specimen obtained, sent to pathology (Bilateral fallopian tubes) Condition: stable Disposition: same day Findings: Findings: Normal external genitalia. Speculum exam: Cervix without any abnormal discharge or lesions. Intra-abdominal survey: No gross abnormalities, uterus midline of around 8 cm, adhesions of anterior uterine wall to the bladder peritoneum, bilateral ovaries within normal limits, fallopian tubes look thickened with associated fatty tissue, thin adhesions of the right ovary to right ovarian fossa. Procedure Description: Patient was taken to the OR with IV fluid running and pneumatic compression stockings applied to the lower extremities. General anesthesia was obtained without difficulty. The patient was placed in the dorsal lithotomy position with Tyler type stirrups with knee bent at 30 degree angles. Patient was prepared and draped under usual sterile technique. Examination under anesthesia as above. The bladder was emptied and Matthew catheter placed. Speculum was placed in the vagina. IUD strings easily visualized and grasped with ring forceps, with gentle traction the device was completely removed. The anterior lip of the cervix was grasped with a single-tooth tenaculum. Uterine manipulator was introduced. I then changed gloves and attention was placed to the abdomen. Two Allis clamps were applied to the periumbilical skin for manual elevation of the abdomen. A vertical skin incision was made in the umbilical fold. 5 mm Optiview trocar introduced into the peritoneal cavity without difficulty. Direct visualization confirmed intraperitoneal placement. Pneumoperitoneum was established with CO2 gas to a pressure of 15mmHg. Findings as above. An intra-abdominal survey revealed normal-appearing liver, gallbladder, spleen, and lack of any visceral or vascular injury. The Trendelenburg position was obtained to facilitate pelvic exposure. One 5 mm trocar was inserted on the left lower quadrant and another at the level of the umbilicus about 6cm towards the left under direct laparoscopic visualization. The left fallopian tube was elevated away from the pelvic sidewall with an atraumatic grasper. Utilizing LigaSure bipolar energy mesosalpinx was serially coagulated and cut until cornual region. Hemostasis was achieved. Same procedure performed on right fallopian tube. Hemostasis secured. Both fallopian tubes sent to pathology. Abdomen and pelvis were thoroughly inspected. Good hemostasis was noted at resection sites. Trocars removed under direct visualization. All instruments were removed from the abdomen and vagina. The pneumoperitoneum was released, and correct instrument counts were confirmed. Skin incisions were closed with 4-0 Monocryl sutures in a subcuticular fashion. The patient was taken to the recovery room in a stable condition. Patient will be discharged from recovery after all the criteria are met for discharge. She was given instructions regarding follow-up visit in 2 weeks at the [facility]. Postop pain management, lifting restrictions, intercourse restrictions were discussed with patient before surgery all questions were answered.
--- NOTE | 2025-06-18 10:25 | P.ANES_ITS ---
Anesthesia Charges Start Date/Time Anesthesia Start Date: 06/18/25 Anesthesia Start Time: 09:16 Stop Date/Time Anesthesia Stop Date: 06/18/25 Anesthesia Stop Time: 10:22 Coding CPT Codes CPT Codes: ANESTH SURG LOWER ABDOMEN - 10739 ([id number]) P1 - NORMAL HEALTHY PATIENT, QK - COCOA PRESS OPERATOR 2-4 CNCRNT ANES PROC, QX - PYROGLAZER SVSalvador W/ MED DIRECTION
--- NOTE | 2025-06-18 10:25 | W.ANESCHARGE ---
Anesthesia Charges Start Date/Time Anesthesia Start Date: 06/18/25 Anesthesia Start Time: 09:16 Stop Date/Time Anesthesia Stop Date: 06/18/25 Anesthesia Stop Time: 10:22 Coding CPT Codes CPT Codes: ANESTH SURG LOWER ABDOMEN - 51778 ([id number]) P1 - NORMAL HEALTHY PATIENT, QK - COURT TRANSCRIBER 2-4 CNCRNT ANES PROC, QX - SKI GUIDE SVSalvador W/ MED DIRECTION
--- NOTE | 2025-06-18 10:38 | P.ANES_ITS ---
Anesthesia Charges Start Date/Time Anesthesia Start Date: 06/18/25 Anesthesia Start Time: 09:16 Stop Date/Time Anesthesia Stop Date: 06/18/25 Anesthesia Stop Time: 10:22 Coding CPT Codes CPT Codes: ANESTH SURG LOWER ABDOMEN - 39049 ([id number]) QK - FITTING ROOM ATTENDANT 2-4 CNCRNT ANES PROC, QX - PIECE DYE WORKER SVC W/ MD MED DIRECTION, P1 - NORMAL HEALTHY PATIENT
--- NOTE | 2025-06-18 10:38 | W.ANESCHARGE ---
Anesthesia Charges Start Date/Time Anesthesia Start Date: 06/18/25 Anesthesia Start Time: 09:16 Stop Date/Time Anesthesia Stop Date: 06/18/25 Anesthesia Stop Time: 10:22 Coding CPT Codes CPT Codes: ANESTH SURG LOWER ABDOMEN - 00171 ([id number]) QK - HORSE GROOMER 2-4 CNCRNT ANES PROC, QX - OIM ARCHITECT SVC W/ MD MED DIRECTION, P1 - NORMAL HEALTHY PATIENT
== END 2025-06-18 11:50 | disposition home or self-care (01) ==
PROVIDERS: PCP Family Medicine; Visit Provider Obstetrics & Gynecology
PROC: (CPT 58661; principal; 2025-06-18 09:00)
DX: Z30.2 Encounter for sterilization (principal); Z30.432 Encounter for removal of intrauterine contraceptive device
CPT/HCPCS: 58661; 58301; 00840; 36415; 81025; 85018; 88302; T1013; J0330; J0665; J1100; J1885; J2250; J2405; J2704; J2710; J3010; J7120